=== PATIENT | female | born 1985 | race Caucasian/White ===

== ENCOUNTER 2022-12-18 13:33 | Outpatient (CLI) | payer OTHER ==
--- NOTE | 2022-12-18 18:29 | XRAY Report ---
PROCEDURE: Chest 2 View X-Ray INDICATIONS: PAIN OF RIGHT INFERIOR RIBS AND POSTERIOR RIBS TECHNIQUE: 2 views of the chest were acquired. Anterior chest wall palpable abnormality marked with a BB COMPARISON: None. FINDINGS: Surgical changes and devices: None. Lungs and pleura: No pleural effusions or pneumothorax. Lungs are clear. Mediastinum: Mediastinal contours appear normal. Heart size is normal. Bones and chest wall: No suspicious bony lesions. Overlying soft tissues appear unremarkable. IMPRESSION: Unremarkable two-view chest x-ray Reviewed by: Beni Hayes MD on 12/18/2022 5:27 PM [facility] Approved by: Beni Hayes MD on 12/18/2022 5:27 PM [facility] Station ID: [id number]
--- NOTE | 2022-12-18 18:35 | XRAY Report ---
PROCEDURE: Ribs 2 View RT INDICATIONS: PAIN OF RIGHT INFERIOR AND POSTERIOR RIBS TECHNIQUE: One views of the right ribs were acquired. Palpable area of concern marked and anterior chest COMPARISON: None. FINDINGS: Surgical changes and devices: None. Bones and chest wall: No fractures or dislocations. No suspicious bony lesions. Overlying soft tis sues appear unremarkable. Area of concern corresponds with the costochondral junction of the right third rib. No osseous abnorm ality Lungs and pleura: The visualized lung appears clear. No pleural effusions or pneumothorax are visib le. IMPRESSION: Area of concern corresponds with the right third rib costochondral junction. No osseous abnormality. Reviewed by: Beni Hayes MD on 12/18/2022 5:33 PM [facility] Approved by: Beni Hayes MD on 12/18/2022 5:33 PM [facility] Station ID: [id number]
== END 2022-12-18 13:34 | disposition home or self-care (01) ==
LOC: DI.S 13:33
PROVIDERS: ATTEND Internal Medicine
DX: R07.81 Pleurodynia (principal); M95.4 Acquired deformity of chest and rib

== ENCOUNTER 2023-08-09 08:00 | Outpatient (CLI) | payer OTHER ==
--- NOTE | 2023-08-10 09:04 | XRAY Report ---
PROCEDURE: Chest 2 View X-Ray INDICATIONS: COUGH TECHNIQUE: 2 views of the chest were acquired. COMPARISON: 12/18/2022 FINDINGS: Surgical changes and devices: None. Lungs and pleura: No pleural effusions or pneumothorax. Lungs are clear. Mediastinum: Mediastinal contours appear normal. Heart size is normal. Bones and chest wall: No suspicious bony lesions. Overlying soft tissues appear unremarkable. IMPRESSION: No acute radiographic abnormality. Reviewed by: Maurice Sharma MD on 08/10/2023 9:02 AM [facility] Approved by: Maurice Sharma MD on 08/10/2023 9:02 AM [facility] Station ID: [id number]
== END 2023-08-09 23:59 | disposition home or self-care (01) ==
LOC: DI.S 08:00
PROVIDERS: ATTEND Internal Medicine
DX: R05.9 Cough, unspecified (principal)

== ENCOUNTER 2024-03-13 07:59 | Outpatient (CLI) | payer OTHER ==
[2024-03-13 18:49] LABS: CHLAMYDIA TRACHOMATIS DNA NEGATIVE (NEGATIVE); NEISSERIA GONORRHOEAE DNA NEGATIVE (NEGATIVE)
[2024-03-13 23:18] LABS: BACTERIAL VAGINOSIS DNA NEGATIVE (NEGATIVE); CANDIDA GLABRATA DNA NEGATIVE (NEGATIVE); CANDIDA GROUP DNA NEGATIVE (NEGATIVE); CANDIDA KRUSEI DNA NEGATIVE (NEGATIVE); TRICHOMONAS VAGINALIS DNA NEGATIVE (NEGATIVE)
[2024-03-14 07:09] LABS: HIV SCREEN 4TH GENERATION Non Reactive (Non Reactive); RPR Non Reactive (Non Reactive)
[2024-03-15 08:08] LABS: HCV AB Non Reactive (Non Reactive)
== END 2024-03-13 08:00 | disposition home or self-care (01) ==
LOC: LAB.S 07:59
PROVIDERS: ATTEND Emergency Medicine
DX: Z11.3 Encounter for screening for infections with a predominantly sexual mode of transmission (principal)
CPT/HCPCS: 36415; 81514; 86592; 86803; 87389; 87491; 87591; 87661